=== PATIENT | male | born 1950 ===

== ENCOUNTER 2019-03-08 14:36 | Emergency (ER) | payer MEDICARE ==
[~2019-03-08] VITALS: Ht 182.9 cm; Wt 80.5 kg
[2019-03-08] MEDS ORDERED: CARV25 PO (15:00)
[2019-03-08] MEDS ORDERED: DULA1.5P SQ (15:00)
[2019-03-08] MEDS ORDERED: METF-960 PO (15:00)
[2019-03-08] MEDS ORDERED: PRIM50 PO (15:00)
[2019-03-08 15:34] LABS: BASOPHILS % (AUTO) 0.9 % (0.0-2.0); HEMATOCRIT 37.2 % (41-53); HEMOGLOBIN 12.1 g/dL (13.5-17.5); LYMPHOCYTES # (AUTO) 1.5 K/uL (1.0-4.8); LYMPHOCYTES % (AUTO) 17.8 % (22.0-44.0); MEAN CORPUSCULAR HEMOGLOBIN 29.7 pg (26.0-34.0); MEAN CORPUSCULAR HGB CONC 32.5 G/dL (31.0-37.0); MEAN CORPUSCULAR VOLUME 91 fL (80-100); MONOCYTES # (AUTO) 0.6 K/uL (0.1-1.0); MONOCYTES % (AUTO) 7.5 % (2.0-9.0); NEUTROPHILS # (AUTO) 6.1 K/uL (1.8-7.7); NEUTROPHILS % (AUTO) 72.8 % (40.0-70.0); PLATELET COUNT (AUTO) 191 K/uL (150-450); RED BLOOD CELL COUNT(AUTO) 4.07 MIL/uL (4.50-5.90); RED CELL DISTRIBUTION WIDTH 14.1 % (11.5-14.5)
[2019-03-08 15:49] LABS: ANION GAP 5 mmol/L (8-16); CALCIUM, TOTAL 9.3 mg/dL (8.8-10.5); CARBON DIOXIDE 29 mmol/L (22-29); CHLORIDE 103 mmol/L (98-107); CREATININE 1.04 mg/dL (0.60-1.30); GLOMERULAR FILTR. RATE CALC > 60 mL/min (>60); GLUCOSE,RANDOM 102 mg/dL (70-110); POTASSIUM 4.8 mmol/L (3.5-5.1); SODIUM SERUM 137 mmol/L (136-145); UREA NITROGEN, BLOOD 14 mg/dL (7-18)
[2019-03-08 16:45] LABS: GLUCOSE,POINT OF CARE 152 MG/DL (70-110)
[2019-03-08 17:31] LABS: GLUCOSE,POINT OF CARE 148 MG/DL (70-110)
[2019-03-08 18:13] VITALS: BP 138/77
[2019-03-08 19:29] LABS: GLUCOSE,POINT OF CARE 187 MG/DL (70-110)
== END 2019-03-08 19:49 | disposition home or self-care (01) ==
LOC: EMS 14:38
DX: E11.649 Type 2 diabetes mellitus with hypoglycemia without coma (principal); F17.210 Nicotine dependence, cigarettes, uncomplicated; I10 Essential (primary) hypertension; Z79.84 Long term (current) use of oral hypoglycemic drugs; Z79.4 Long term (current) use of insulin
CPT/HCPCS: 99406